=== PATIENT | male | born 1970 | race Caucasian/White ===

== ENCOUNTER 2022-06-11 19:04 | Emergency (ER) | payer OTHER, SELFPAY ==
[2022-06-11 19:17] VITALS: BP 123/85; PULSE 102; RESP 18; TEMP 36.1; O2SAT 98
[2022-06-11 19:21] VITALS: BP 123/85; PULSE 102; RESP 18; TEMP 36.1; O2SAT 98
--- NOTE | 2022-06-11 19:29 | ED.SKABFB ---
HPI - Skin/Abscess/Foreign Bdy General Chief complaint: Skin/Abscess/Foreign Body Stated complaint: Rash Time Seen by Provider: 06/11/22 19:29 Source: patient Mode of arrival: ambulatory Limitations: no limitations History of Present Illness HPI narrative: 51 yo M presents with c/o poison chad rash to lower legs for 10 days. Has taken medrol dosepak with some relief. Called PCP and requested second round of steroids and was told no. Was then given hydrocortison 2.5%. States since off steroids rash worse. Rash to R lower leg is painful and burning. cannot stop scratching . States rash first started after doing yard work. All systems reviewed and negative except as noted above. Related Data Home Medications Medication Instructions Recorded Confirmed alprazolam 0.5 mg tablet 0.5 mg PO PRN PRN Anxiety 06/11/22 06/11/22 hydrocortisone 2.5 % topical cream 3 applic topical DAILY 06/11/22 06/11/22 levothyroxine 88 mcg tablet 88 mcg PO DAILY 06/11/22 06/11/22 sertraline 100 mg tablet 100 mg PO DAILY 06/11/22 06/11/22 simvastatin 10 mg tablet 10 mg PO DAILY 06/11/22 06/11/22 Allergies Allergy/AdvReac Type Severity Reaction Status Date / Time No Known Allergies Allergy Verified 06/11/22 19:10 Review of Systems Review of Systems: CONSTITUTIONAL: Denies fever, chills, or sweats. EYES: Denies visual changes, redness, or discharge. ENT: Denies rhinorrhea, congestion, sore throat, or otalgia. CARDIOVASCULAR: Denies chest pain, palpitations, or edema. RESPIRATORY: Denies cough or dyspnea. GASTROINTESTINAL: Denies abdominal pain, nausea, vomiting, or diarrhea. GENITOURINARY: Denies dysuria or hematuria. SKIN: Reports itchy rash to bilateral lower extremities. MUSCULOSKELETAL: Denies back pain, joint pain, or myalgia. NEUROLOGIC: Denies headache, numbness, or weakness. PSYCHIATRIC: Denies anxiety or depression. All other systems reviewed are negative, except as documented in HPI. PMFSH Comments At time of signature, agree with nursing past medical, surgical, social and family history. There is no relevant family history pertinent to the presenting complaint. Exam Narrative: GENERAL: This is a well-nourished, well-developed patient, in no apparent distress. HEAD: normocephalic, atraumatic. EYES: PERRL. Sclera clear/white. Vision is grossly intact. EARS: External ears normal NOSE: External nose normal NECK: Neck supple, non-tender without lymphadenopathy, masses or thyromegaly. CARDIOVASCULAR: Regular rate and rhythm without murmurs, gallops, or rubs. RESPIRATORY: Clear to auscultation. Breath sounds equal bilaterally. No wheezes, rales, or rhonchi. SKIN: warm, Dry, intact with , good texture and turgor. Erythematous vesicles to bilateral lower extremities. Some are scabbed and drying up. NEURO: awake, alert, and oriented to person, place and time. There were no obvious focal neurologic abnormalities. EXTREMITIES: No joint tenderness, effusion, or edema noted. Course Course Level of Care: Express Care Visit Vital Signs Vital signs: Vital Signs Temperature 36.1 C L 06/11/22 19:17 Pulse Rate 102 H 06/11/22 19:17 Respiratory Rate 18 06/11/22 19:17 Blood Pressure 123/85 06/11/22 19:17 Pulse Oximetry 98 06/11/22 19:17 Oxygen Delivery Room Air 06/11/22 19:17 Temperature 36.1 C L 06/11/22 19:21 Pulse Rate 102 H 06/11/22 19:21 Respiratory Rate 18 06/11/22 19:21 Blood Pressure 123/85 06/11/22 19:21 Pulse Oximetry 98 06/11/22 19:21 Oxygen Delivery Room Air 06/11/22 19:21 reviewed MDM - Skin/Abscess/Foreign Bdy MDM Narrative Medical decision making narrative: Patient is aware of diagnosis, understands and agrees to treatment plan. Anticipatory guidance given. Patient agrees to follow-up as directed and is aware of reasons to seek care at the emergency department. Portions of this record may have been created with voice recognition software Discharge Plan Discharge Clinical Impress
== END 2022-06-11 19:39 | disposition home or self-care (01) ==
PROVIDERS: Emergency Provider Nurse Practitioner Family; PCP Family Medicine Sports Medicine
DX: L25.5 Unspecified contact dermatitis due to plants, except food (principal); L03.115 Cellulitis of right lower limb; E03.9 Hypothyroidism, unspecified; F41.9 Anxiety disorder, unspecified; F32.A Depression, unspecified
CPT/HCPCS: 99213; G0463

== ENCOUNTER 2025-04-04 17:06 | Emergency (ER) | payer OTHER, SELFPAY ==
--- NOTE | ~2025-04-04 | XR_ITS ---
XR elbow LT min 3V Ordering provider: Oj Sung APRN History: . fall, injury . Comparison: None. FINDINGS: BONES: No acute fracture or dislocation. JOINT SPACES: Normal. SOFT TISSUES: Normal. No definite joint effusion. IMPRESSION: No acute osseous abnormality left elbow. Reviewed, dictated and finalized at location A.
--- OUTSIDE RECORDS SUMMARY | 2025-04-04 17:08 | XMS_ITS | Clinical Summary ---
Author Organization [address] Address [address] [place] [id number] Care Team Providers Care Land Department Head Name Role Phone Familia Hogue MD Primary Care Provider Allergies No known active allergies Medications simvastatin (ZOCOR) 10 mg tablet Take 10 mg by mouth nightly Active HYDROcodone-acetam inophen (NORCO) 5-325 mg per tabletIndications: Pain,post op pain Take 1 tablet by mouth every 4 (four) hours as needed for pain 30 tablet 2 Active simvastatin (ZOCOR) 10 mg tabletIndications: Elevated lipids Take 1 tablet (10 mg total) by mouth nightly 30 tablet 5 2 Active sertraline (ZOLOFT) 100 mg tabletIndications: Recurrent major depressive disorder, in full remission TAKE 2 TABLETS(200 MG) BY MOUTH DAILY 60 tablet 1 2 Active ALPRAZolam (XANAX) 0.5 mg tabletIndications: Primary insomnia Take 1 tablet (0.5 mg total) by mouth 3 (three) times a day as needed for anxiety 90 tablet 2 Active levothyroxine (SYNTHROID) 88 mcg tabletIndications: Other specified hypothyroidism Take 1 tablet (88 mcg total) by mouth animal groomer before breakfast 30 tablet 2 Active Active Problems Problem Noted Date Diagnosed Date Carpal tunnel syndrome on right 11/10/2021 Overview (11/10/2021): Added automatically from request for surgery [id number] Depression 10/06/2021 Overview (10/06/2021): Following with outside psychiatrist Multiple medications in the past On Zoloft and bupropion Trazodone as needed, xanax as needed Hyperlipidemia 10/06/2021 Overview (10/06/2021): Lab Results Component Value Date Cholesterol, Total 205 (H) 10/18/2020 Cholesterol, Total 224 (H) 09/17/2020 Cholesterol, Total 181 09/21/2019 HDL Cholesterol 34 (L) 10/18/2020 HDL Cholesterol 37 (L) 09/17/2020 HDL Cholesterol 34 (L) 09/21/2019 LDL Cholesterol 121 (H) 10/18/2020 LDL Cholesterol 131 (H) 09/17/2020 LDL Cholesterol 105 (H) 09/21/2019 Triglyceride 281 (H) 10/18/2020 Triglyceride 312 (H) 09/17/2020 Triglyceride 210 (H) 09/21/2019 On Zocor. Hypothyroidism 10/06/2021 Overview (10/06/2021): Lab Results Component Value Date TSH 6.890 (H) 10/18/2020 TSH 4.980 (H) 09/17/2020 TSH 3.050 09/21/2019 FREET4 0.98 10/18/2020 FREET4 1.04 09/17/2020 FREET4 1.06 09/21/2019 On synthroid Obesity, Class II, BMI 35-39.9 09/28/2019 S/p nephrectomy 09/14/2019 External hemorrhoid, thrombosed 09/11/2019 Neck pain 02/01/2019 Posture imbalance 02/01/2019 Immunizations Immunization Administration Dates Next Due Influenza, Quadrivalent, Spl it, Intramuscular 09/24/2020,09/06/2019,08/25/2018,09/06,09/05/2015 Influenza, Quadrivalent, Spl it, Preservative Free, Intramuscular 09/28/2021 Pfizer SARS-CoV-2 Monovalent Vaccination (12+ Yrs) PURPLE 03/01/2021,02/01/2021 Tdap 09/14/2019 ZOSTER LIVE 11/13/2020 Surgical History Surgery Date Site/Laterality Comments NEPHRECTOMY 1968 - 11/07/1969 Right Medical History Medical History Date Comments Hypothyroidism Depression Sleep apnea Anxiety Hyperlipidemia Family History Medical History Relation Name Comments No Known Problems Brother No Known Problems Daughter nasal cancer Father Heart disease Father Alcohol abuse Maternal Grandfather Hypothyroidism Maternal Grandmother No Known Problems Mother Blindness Paternal Grandfather No Known Problems Paternal Grandmother No Known Problems Sister 1 No Known Problems Sister 2 Relation Name Status Comments Brother Alive Daughter Alive Father Alive Maternal Grandfather Maternal Grandmother Mother Alive Paternal Grandfather Paternal Grandmother Sister 1 Alive Sister 2 Alive Social History Tobacco Use Types Packs/Day Years Used Date Smoking Tobacco: Never Smokeless Tobacco: Former Chew Quit: 2019 AUDIT-C Answer Date Recorded Q1: How often do you have a drink containing alc ohol? Never 12/01/2021 Average Number of Drinks Not on file 022 Frequency of Binge Drinking Not on file 11/09 PHQ-2 Answer Date Recorded PHQ-2 Total Score (If total score is 3 or more points, staff should administer the PHQ-9) 2 07/07/2021 Sex and Gender Information Value Date Recorded Sex Assigned at Not on file Legal Sex Male 12:56 AM CDT Gender Identity Not on file Sexual Orientation Not on file Obstetrics History Last Filed Vital Signs Vital Sign Reading Time Taken Comments Blood Pressure 131/95 12/09/2021 11:35 AM INVENTORY CONTROL CLERK Pulse 65 12/09/2021 11:35 AM INVENTORY CONTROL CLERK Temperature 36.1 C (97 F) 12/09/2021 11:30 AM INVENTORY CONTROL CLERK Respiratory Rate 16 12/09/2021 11:35 AM INVENTORY CONTROL CLERK Oxygen Saturation 95% 12/09/2021 11:35 AM INVENTORY CONTROL CLERK Inhaled Oxygen Concentration - - Weight 123 kg (271 lb 4 oz) 12/09/2021 9:[address] Height 180.3 cm (5' 11) 12/09/2021 9:00 AM INVENTORY CONTROL CLERK Body Mass Index 37.83 12/09/2021 9:00 AM INVENTORY CONTROL CLERK Plan of Treatment Health Maintenance Due Date Last Done Comments Colon Cancer Screening-Colonoscopy 1968 Hepatitis C Screening 1968 Hepatitis B Screening 1986 Zoster Vaccine (2 of 3) 01/08/2021 11/13/2020 Depression Screening 07/07/2022 07/07/2021 Regular Well Visit/Exam 18-64 10/06/2022 10/06/2021 Prostate Cancer Screening-PSA 09/15/2023 09/15/2021 Covid-19 Vaccine ( - season) 2024 09/28/2021, 03/01/2021, 02/01/2021 Influenza Vaccine (Season Ended) 2025 09/28/2021, 09/24/2020, 09/06/2019, Additional history exists DTaP/Tdap/Td Vaccine (2 - Td or Tdap) 09/14/2029 09/14/2019 Pneumococcal vaccine <65 Aged Out No longer eligible based on patient's age to complete this topic Procedures Procedure Name Priority Date/Time Associated Diagnosis Comments PSA SCREEN Routine 09/15/2021 1:26 PM INVENTORY CONTROL CLERK Routine general medical examination at a health care facility Screening PSA (prostate specific antigen) from Last 3 Months or Most Recently Relevant to Health Maintenance Results * PSA screen (09/15/2021 1:26 PM INVENTORY CONTROL CLERK) [facility] PSA 0.9 0.0 - 4.0 ng/mL [facility] - Comment: [employer] ECLIA methodology. According to the [place] [employer], Serum PSA should decrease and remain at undetectable levels after radical prostatectomy. The AUA defines biochemical recurrence as an initial PSA value 0.2 ng/mL or greater followed by a subsequent confirmatory PSA value 0.2 ng/mL or greater. Values obtained with different assay methods or kits cannot be used interchangeably. Results cannot be interpreted as absolute evidence of the presence or absence of malignant disease. Blood specimen (specimen) 09/15/2021 1:26 PM INVENTORY CONTROL CLERK 09/15/2021 Narrative [facility] - 09/16/2021 8:12 AM INVENTORY CONTROL CLERK Performed at: [address] [place] [id number] Director Product Management: Shaun Aguero PhD, Phone: [phone] us Familia Hogue MD LAB BLOOD ORDERABLES Final Resu lt [facility] - 01 from Last 3 Months or Most Recently Relevant to Health Maintenance Insurance [facility] Address: [address] [address] [place] [address] [facility] Address: [address] [address] [place] [address] Care Teams Land Department Head Relationship Specialty Start Date End Date Familia Hogue MD PCP - General Family Medicine 06/24/21
--- OUTSIDE RECORDS SUMMARY | 2025-04-04 17:08 | XMS_ITS | Referral Summary ---
Author Organization [address] Address [address] [place] [id number] Care Team Providers Care Fire Services Plumber Name Role Phone Familia Hogue MD Primary Care Provider [phone] Allergies No known active allergies Medications simvastatin [...] 1 tablet (88 mcg total) by mouth oil field technician before breakfast 30 tablet 2 Active Active Problems Problem Noted Date Diagnosed Date Carpal tunnel syndrome on right 11/10/2021 Overview (11/10/2021): Added automatically from request for surgery [id number] Depression 10/06/2021 Overview (10/06/2021): Following with outside [...] PURPLE 03/01/2021,02/01/2021 Tdap 09/14/2019 ZOSTER LIVE 11/13/2020 Social History Tobacco Use Types Packs/Day Years [...] on file Sexual Orientation Not on file Last Filed Vital Signs Vital Sign Reading Time Taken Comments Blood Pressure 131/95 12/09/2021 11:35 AM REPATCHER Pulse 65 12/09/2021 11:35 AM REPATCHER Temperature 36.1 C (97 F) 12/09/2021 11:30 AM REPATCHER Respiratory Rate 16 12/09/2021 11:35 AM REPATCHER Oxygen Saturation 95% 12/09/2021 11:35 AM REPATCHER Inhaled Oxygen Concentration - - Weight 123 kg (271 lb 4 oz) 12/09/2021 9:[address] Height 180.3 cm (5' 11) 12/09/2021 9:00 AM REPATCHER Body Mass Index 37.83 12/09/2021 9:00 AM REPATCHER Plan of Treatment Not on file Procedures Procedure Name Priority Date/Time Associated Diagnosis Comments PSA SCREEN Routine 09/15/2021 1:26 PM REPATCHER Routine general medical examination at a health care facility Screening PSA (prostate specific antigen) from Last 3 Months or Most Recently Relevant to Health Maintenance Results * PSA screen (09/15/2021 1:26 PM REPATCHER) PSA 0.9 0.0 - 4.0 ng/mL [facility] - 01 Comment: [employer] ECLIA methodology. According to the [employer] [employer], Serum PSA should decrease and [...] disease. Blood specimen (specimen) 09/15/2021 1:26 PM REPATCHER 09/15/2021 Narrative [facility] - 09/16/2021 8:12 AM REPATCHER Performed at: 01 - [address] [id number] Setup Technician: Shaun Aguero PhD, Phone: [phone] us Familia Hogue MD LAB BLOOD ORDERABLES [facility] - from Last 3 Months or Most Recently Relevant to Health Maintenance Insurance [facility] [id number] [place] [address] Care Teams Fire Services Plumber Relationship Specialty Start Date End Date Familia Hogue MD PCP - General Family Medicine 06/24/21
[2025-04-04 17:16] VITALS: BP 140/91; PULSE 80; RESP 18; TEMP 36.1; O2SAT 97
--- NOTE | 2025-04-04 17:21 | ED.GENADULT ---
HPI - General Adult General Chief complaint: Extremity Injury, Upper Stated complaint: arm injury Time Seen by Provider: 04/04/25 17:08 Source: patient Mode of arrival: ambulatory Limitations: no limitations History of Present Illness HPI narrative: Patient is a [id number] 54-year-old male presenting with complaint of extremity injury. Patient reports fall 2 weeks ago, striking his left forearm / elbow on a concrete surface. Patient voices concern due to continued pain, presence of wound. Treatments initiated prior to arrival include wound care with rubbing alcohol, peroxide, triple antibiotic ointment. Unsure of date of last tetanus vaccination. No paresthesias of the left upper extremity. He denies striking his head. he denies loss of consciousness. no Additional complaints. Related Data Home Medications ?Medication ?Instructions ?Recorded ?Confirmed ?Last Taken ?Type levothyroxine 88 mcg tablet 88 mcg PO DAILY 06/11/22 06/11/22 Unknown History sertraline 100 mg tablet 100 mg PO DAILY 06/11/22 06/11/22 Unknown History bupropion HCl 300 mg 24 hr tablet, mg PO 04/04/25 Unknown History extended release rosuvastatin 20 mg tablet mg 04/04/25 Unknown History Allergies Allergy/AdvReac Type Severity Reaction Status Date / Time No Known Allergies Allergy Verified 04/04/25 17:20 Review of Systems Review of Systems: All systems reviewed & are unremarkable except as noted in HPI and below Exam Narrative: GENERAL: Well-appearing, well-nourished, and in no acute distress. HEAD: Normocephalic, atraumatic. EYES: EOMI. No redness or drainage. Conjunctivae normal. ENT: Mucous membranes pink and moist. NECK: Normal AROM. Supple. CHEST: No respiratory distress. HEART: Regular rate Normal peripheral pulses. MUSCULOSKELETAL: No bony tenderness. EXTREMITIES: Normal range of motion. No edema. SKIN: Warm, dry, no rash. Capillary refill normal. Normal skin turgor. NEURO: No focal deficits. Alert and oriented x3. Gait steady. PSYCH: Normal affect. No signs of depression or anxiety. Skin: Wounds: wounds noted laceration left proximal forearm size ([id number]) and other (well healing, scar formation noted circumferentially to border of wound); no drainage, odorous and without any surrounding erythema Extrem: General: normal to inspection Other: DNVI, FROM to the left upper extremity. The LUE is without ecchymosis, erythema, lymphatic streaking, drainage. Course Course Level of Care: Express Care Visit Vital Signs Vital signs: Vital Signs Temperature 96.9 F L 04/04/25 17:16 Pulse Rate 80 04/04/25 17:16 Respiratory Rate 18 04/04/25 17:16 Blood Pressure 140/91 H 04/04/25 17:16 Pulse Oximetry 97 04/04/25 17:16 Oxygen Delivery Room Air 04/04/25 17:16 Temperature 96.9 F L 04/04/25 17:16 Pulse Rate 80 04/04/25 17:16 Respiratory Rate 18 04/04/25 17:16 Blood Pressure 140/91 H 04/04/25 17:16 Pulse Oximetry 97 04/04/25 17:16 Oxygen Delivery Room Air 04/04/25 17:16 Medical Decision Making Medical Records Medical records reviewed: Yes I reviewed the external patient's medical records. Vital Signs Vital Signs: Vital Signs Temperature 96.9 F L 04/04/25 17:16 Pulse Rate 80 04/04/25 17:16 Respiratory Rate 18 04/04/25 17:16 Blood Pressure 140/91 H 04/04/25 17:16 Pulse Oximetry 97 04/04/25 17:16 Oxygen Delivery Room Air 04/04/25 17:16 Temperature 96.9 F L 04/04/25 17:16 Pulse Rate 80 04/04/25 17:16 Respiratory Rate 18 04/04/25 17:16 Blood Pressure 140/91 H 04/04/25 17:16 Pulse Oximetry 97 04/04/25 17:16 Oxygen Delivery Room Air 04/04/25 17:16 Discharge Plan Discharge Clinical Impression: Left forearm pain, Laceration of left forearm without complication, Fall, Elevated blood pressure reading in office with white coat syndrome, without diagnosis of hypertension Patient Disposition: Home Condition: Stable Instructions: Laceration Without Closure (ED) Additional Instructions: Go straight to ER should your symptoms become worse or should any new symptoms develop Patient Language: Guamanian Prescriptions: No Action sertraline 100 mg tablet 100 mg PO DAILY levothyroxine 88 mcg tablet 88 mcg PO DAILY rosuvastatin 20 mg tablet bupropion HCl 300 mg tablet extended release 24 hr PO Follow-up/Referrals: Dennis,Jaspreet Sosa MD [Primary Care Provider] - 1 Day Time of Disposition: 17:38
[2025-04-04] MEDS: TETANUS,DIPHTHERIA,AC PERTUSSIS ADULT (0.5 ML) BOOSTRIX IM (17:39)
== END 2025-04-04 17:50 | disposition home or self-care (01) ==
PROVIDERS: Emergency Provider Registered Nurse; PCP Family Medicine Sports Medicine
DX: M79.632 Pain in left forearm (principal); S51.812A Laceration without foreign body of left forearm, initial encounter; W19.XXXA Unspecified fall, initial encounter; R03.0 Elevated blood-pressure reading, without diagnosis of hypertension; Z23 Encounter for immunization
CPT/HCPCS: 73080; 90471; 90715; 99212; G0463